=== PATIENT | male | born 1980 | race Caucasian/White ===

== ENCOUNTER 2018-08-05 08:13 | Emergency (ER) | payer SELFPAY ==
--- NOTE | 2018-08-05 08:41 | ED Physician Documentation ---
Upper Extremity Injury - HISTORIAN Historian: patient - HPI Stated Complaint: left elbow pain Chief Complaint: Upper Back Injury/ Pain Additional Information: Patient presents to ED with a 2 day history of worsening left elbow pain. Patient states he had left elbow surgery 2 weeks ago after falling off balcony and sustaining fractures to left arm. He states he was doing well until a couple of days ago when he began to have more pain in the left elbow. Sutures are still present. Onset: days ago (2) Where: home Severity: moderate Duration: worse Context: fall Associated Symptoms: denies: numbness distally Modifying Factors: pain on movement - ROS CONST: denies: fever CVS/RESP: denies: chest pain NEURO: denies: headache MS/SKIN/LYMPH: denies: neck pain - PAST HX Past History: Rt handed - SOCIAL HX Smoking History: cigarettes Alcohol Use: none Drug Use: none - FAMILY HX Family History: none - REVIEWED ASSESSMENTS Nursing Assessment Reviewed: Yes Vitals Reviewed: Yes ED Results Lab/Radiology - Orders Orders: ED Orders Category Date Time Status ELBOW 3 VIEWS [RAD] Stat Exams 08/05/18 Ordered Upper Extremity Injury Physic - Physical Exam General Appearance: no acute distress, alert Hand: non-tender, no evidence of injury Wrist: normal inspection, no evidence of injury Elbow/Forearm: soft tissue tenderness, swelling (mattress sutures along elbow, heat and erythema present) Shoulder: no evidence of injury Neuro/Vascular/Tendon: no vascular compromise, motor nml, sensation nml Skin: warm,dry Head/ENT: nml inspection Neck/Back: nml inspection Resp/CVS: breath sounds nml, heart sounds nml Abdomen: non-tender, tenderness Discharge Clincal Impression: Cellulitis of left elbow Referrals: Primary Doctor,No [Primary Care Provider] - 2 Days Condition: Stable Disposition: AGAINST MEDICAL ADVICE Decision to Admit: NO Date of Decison to Admit: 08/05/18 Decision Time: 09:07
[2018-08-05 09:07] VITALS: BP 119/87
== END 2018-08-05 08:54 | disposition left against medical advice (07) ==
LOC: ED 08:13
DX: L03.114 Cellulitis of left upper limb (principal); Z98.890 Other specified postprocedural states
CPT/HCPCS: 99281

== ENCOUNTER 2018-08-06 03:33 | Emergency (ER) | payer SELFPAY ==
[2018-08-05 09:07] VITALS: BP 119/87
--- NOTE | 2018-08-06 03:41 | ED Physician Documentation ---
Upper Extremity Injury - HISTORIAN Historian: patient - HPI Stated Complaint: left elbow pain Chief Complaint: Upper Extremity Injury Additional Information: Patient presents to ED with [place] police with complaints left elbow pain. Patient presented to this ER earlier today with similar complaints, however, left AMA prior to treatment. Patient reported earlier that he had surgery on his left elbow approximately 2 weeks prior at [facility]. He reports falling off a second story balcony and catching his left arm on the railing one floor down. He underwent surgery that day. He reports worsening left elbow pain. Police report patient running and climbing fences tonight during pursuit. There are 4 police officers present. Patient is handcuffed to stretcher. Onset: yesterday Where: other Severity: moderate Duration: persistent since Context: fall Associated Symptoms: tingling Modifying Factors: pain on movement Further Comments: no - ROS CONST: denies: fever CVS/RESP: denies: shortness of breath NEURO: denies: headache MS/SKIN/LYMPH: denies: neck pain, back pain GI/: denies: nausea, vomiting - PAST HX Past History: Rt handed - SOCIAL HX Smoking History: non-smoker Alcohol Use: none Drug Use: none - FAMILY HX Family History: none - VITAL SIGNS Vital Signs: Vital Signs Temp Pulse Resp BP Pulse Ox 119/87 08/05/18 08:54 - REVIEWED ASSESSMENTS Nursing Assessment Reviewed: Yes Vitals Reviewed: Yes Progress - Progress Progress: 0345 Patient verbally abusive to staff. Patient allowed one view xray then refused further imaging. 0409 Patient verbally abusive to staff. ED Results Lab/Radiology - Radiology Radiology Impressions: Report Submission Date: Aug 06, 2018 3:58:55 AM STACKER OPERATOR Patient Study Name: SALUD MUNOZ Date: Aug 06, 2018 3:35:00 AM STACKER OPERATOR Modality Type: DX Gender: M Description: ELBOW 2 VIEWS : 76 Institution: [facility] Physician: JESÚS CHRISTOPHER Left elbow single views History: Pain after fall. Surgery 9 days ago. Or Findings: A dorsal plate and multiple screws traverse a proximal ulna fracture. Small volar fracture fragments are present. The radius is partially obscured. The exam is incomplete without an AP view. Electronically signed on Aug 06, 2018 3:58:55 AM STACKER OPERATOR by: Gucci Herrera - Orders Orders: ED Orders Category Date Time Status ELBOW 2 VIEWS [RAD] Stat Exams 08/06/18 Ordered Upper Extremity Injury Physic - Physical Exam General Appearance: no acute distress, alert Hand: normal inspection, non-tender, no evidence of injury Wrist: normal inspection, non-tender, no evidence of injury Elbow/Forearm: soft tissue tenderness, swelling (mattress type suture along posterior elbow. ) Shoulder: normal inspection, no evidence of injury Neuro/Vascular/Tendon: no vascular compromise, motor nml, sensation nml, ROM limited by pain, other (all fingers on left hand with good cap refill. ) Skin: warm,dry Head/ENT: nml inspection Neck/Back: nml inspection Resp/CVS: chest non-tender, breath sounds nml Abdomen: pelvis stable Discharge Clincal Impression: Left elbow fracture Qualifiers: Encounter type: sequela Fracture type: closed Qualified Code(s): S42.402S - Unspecified fracture of lower end of left humerus, sequela Clincal Impression: (Ruled Out): Left elbow pain Referrals: Primary Doctor,No [Primary Care Provider] - 2 Days Additional Instructions: 1. Tylenol and/or Ibuprofen as needed for pain 2. Keep elbow elevated to reduce swelling 3. Apply ice to affected area as needed for comfort 4. Refer to discharge instructions from Orthopedic surgeon for activity restrictions. 5. Follow up with your Orthopedic surgeon as previously scheduled 6. Return to an ER for new or worsening symptoms Condition: Stable Disposition: 01 HOME, SELF-CARE Decision to Admit: NO Date of Decison to Admit: 08/06/18 Decision Time: 03:53
--- NOTE | 2018-08-06 04:28 | Diagnostic Imaging Report ---
JESÚS CHRISTOPHER [facility] [id number] [facility] [address] [id number] Report Submission Date: Aug 06, 2018 3:58:55 AM GAMING SURVEILLANCE OBSERVER Patient Study Name: SALUD MUNOZ Date: Aug 06, 2018 3:35:00 AM GAMING SURVEILLANCE OBSERVER Modality Type: DX Gender: M Description: ELBOW 2 VIEWS : 76 Institution: [facility] Physician: JESÚS CHRISTOPHER Left elbow single views History: Pain after fall. Surgery 9 days ago. Or Findings: A dorsal plate and multiple screws traverse a proximal ulna fracture. Small volar fracture fragments are present. The radius is partially obscured. The exam is incomplete without an AP view. Electronically signed on Aug 06, 2018 3:58:55 AM GAMING SURVEILLANCE OBSERVER by: Gucci DUMAS
== END 2018-08-06 04:20 | disposition home or self-care (01) ==
LOC: ED 03:33
DX: S52.002A Unspecified fracture of upper end of left ulna, initial encounter for closed fracture (principal); S42.402A Unspecified fracture of lower end of left humerus, initial encounter for closed fracture; X58.XXXA Exposure to other specified factors, initial encounter; Y93.89 Activity, other specified; Y92.9 Unspecified place or not applicable
CPT/HCPCS: 73070; 99283